=== PATIENT | male | born 1985 | race African-American/Black ===

== ENCOUNTER 2021-07-17 11:23 | Emergency (ER) | payer MEDICAID, OTHER ==
[~2021-07-17] VITALS: Ht 170.2 cm; Wt 61.0 kg
[2021-07-17] MEDS ORDERED: KETOROLAC 15MG/ML VIAL IV ONE (12:15)
[2021-07-17] MEDS ORDERED: DEXAMETHASONE 10 MG/ML VIAL IV ONE (12:15)
[2021-07-17] MEDS ORDERED: SODIUM CHLORIDE 0.9% 1,000 ML IV ONE (12:15)
[2021-07-17] MEDS ORDERED: CLINDAMYCIN 600 MG in DEXTROSE 5% WATER 50 ML IV ONE (12:15)
[2021-07-17] MEDS ORDERED: CLINDAMYCIN 600 MG PREMIX 50 ML IV NR (13:15)
[2021-07-17] MEDS ORDERED: VISCOUS LIDOCAINE 2% 15 ML UDC MM STA (13:45)
[2021-07-17] MEDS ORDERED: CLIN300C12 MT (14:52)
[2021-07-17] MEDS ORDERED: TOPUD MT (14:52)
[2021-07-17] MEDS ORDERED: LACT1CAP63 MT (14:52)
[2021-07-17 15:25] VITALS: BP 100/59
== END 2021-07-17 15:52 | disposition home or self-care (01) ==
LOC: ER 11:23
DX: J36 Peritonsillar abscess (principal); Z20.822 Contact with and (suspected) exposure to COVID-19
CPT/HCPCS: 87426; 96361; 96365; 96375; 99284; J1100; J1885; J3490; J7030; Z7610; J7060

== ENCOUNTER 2022-05-30 12:25 | Emergency (ER) | payer MEDICAID, OTHER ==
[~2022-05-30] VITALS: Ht 167.6 cm; Wt 70.0 kg
[~2022-05-30 12:25] MED LIST: CLIN-194 MT; LACT1CAP63 MT; TOPUD MT
[2022-05-30 12:28] VITALS: BP 146/80
[2022-05-30] MEDS ORDERED: ACETAMINOPHEN 325MG TABLET PO ONE (12:30)
[2022-05-30] MEDS ORDERED: HYDROCODONE/ACETAMINOPHEN 5/325MG TABLET PO NR (15:00)
[2022-05-30] MEDS ORDERED: HYDR-4001 MT (15:00)
[2022-05-30] MEDS ORDERED: IBUP-2029 MT (15:00)
== END 2022-05-30 16:26 | disposition home or self-care (01) ==
LOC: ER 12:33
DX: S82.042A Displaced comminuted fracture of left patella, initial encounter for closed fracture (principal); R03.0 Elevated blood-pressure reading, without diagnosis of hypertension; M25.062 Hemarthrosis, left knee; V18.4XXA Pedal cycle driver injured in noncollision transport accident in traffic accident, initial encounter; Y93.55 Activity, bike riding; Y92.488 Other paved roadways as the place of occurrence of the external cause
CPT/HCPCS: 73562; 99283; L1830; Z7610